=== PATIENT | male | born 1960 | race Caucasian/White ===

== ENCOUNTER 2016-10-16 19:49 | Emergency (ER) | payer BC ==
[~2016-10-16] VITALS: Ht 188 cm; Wt 97.0 kg
[2016-10-16] MEDS ORDERED: ADENOSINE IV SOLN 3 MG/ML 2 ML VIAL ONE ×2 (19:59→20:03)
[2016-10-16 20:10] VITALS: BP 151/88; PULSE 190; RESP 20; TEMP 97.9; O2SAT 100
--- NOTE | 2016-10-16 20:13 | PD ---
HPI Chief Complaint: Chest Pain Time Seen by Provider: 20:06 Travel History International Travel<30 days: No Contact w/Intl Traveler<30days: No Traveled to known affect area: No History of Present Illness HPI Patient is a 56-year-old male presents emergency department for evaluation of chest pain the center of his chest and feeling like he is going to . Patient states he has had some palpitations in the past but has never been evaluated by physician for her fast heart rate. Patient states she's also been having some epigastric pain as well as some gas. Some mild shortness of breath and some sweating episodes. 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 He describes the pain is heavy. Has not tried anything prior to arrival. [facility] Past Medical History Narrative Medical Hyperlipidemia, gastroesophageal reflux, hypothyroidism Past Surgical History Narrative Surgical Denies Family History Narrative Family History Noncontributory Social History Tobacco Use: No Substance Use: Yes (marijuana) Allergies-Medications (Allergen,Severity, Reaction): Coded Allergies: No Known Allergies (Unverified , 10/16/16) Reported Meds & Prescriptions Reported Meds & Active Scripts Active Nitroglycerin SL (Nitroglycerin) 0.4 Mg Subl 0.4 Mg SL DIRECTED PRN ONE TABLET UNDER THE TONGUE NEEDED FOR CHEST PAIN, MAY REPEAT EVERY FIVE MINUTES FOR A TOTAL OF 3 DOSES OR CALL 911 IF NO RELIEF Reported Prozac (Fluoxetine HCl) 20 Mg Cap 20 Mg PO DAILY Synthroid (Levothyroxine Sodium) 137 Mcg Tab 137 Mcg PO DAILY Seroquel (Quetiapine Fumarate) 50 Mg Tab 50 Mg PO BID Simvastatin 40 Mg Tab 40 Mg PO HS Review of Systems Except as stated in HPI: all other systems reviewed are Neg Physical Exam Narrative GENERAL: Well-developed well-nourished anxious but in no obvious distress. SKIN: Skin is adequately perfused but diaphoretic. HEAD: Atraumatic. Normocephalic. EYES: Pupils equal and round. No scleral icterus. No injection or drainage. ENT: No nasal bleeding or discharge. Mucous membranes pink and moist. NECK: Trachea midline. No JVD. CARDIOVASCULAR: Very tachycardic with regular rhythm.. No murmur appreciated. No carotid bruits. RESPIRATORY: No accessory muscle use. Clear to auscultation. Breath sounds equal bilaterally. GASTROINTESTINAL: Abdomen soft, non-tender, nondistended. Hepatic and splenic margins not palpable. MUSCULOSKELETAL: No obvious deformities. No clubbing. No cyanosis. No edema. NEUROLOGICAL: Awake and alert. No obvious cranial nerve deficits. Motor grossly within normal limits. Normal speech. PSYCHIATRIC: Appropriate mood and affect; insight and judgment normal. Data Data Last Documented VS Vital Signs Date Time Temp Pulse Resp B/P Pulse Ox O2 Delivery O2 Flow Rate FiO2 10/16/16 21:21 97.9 190 20 151/88 98 10/16/16 20:40 Room Air 10/16/16 20:27 2 Orders Adenosine Inj (Adenocard Inj) (10/16/16 19:59) Adenosine Inj (Adenocard Inj) (10/16/16 20:03) Adenosine Inj (Adenocard Inj) (10/16/16 20:15) Electrocardiogram (10/16/16 20:06) Ckmb (Isoenzyme) Profile (10/16/16 20:06) Complete Blood Count With Diff (10/16/16 20:06) Comprehensive Metabolic Panel (10/16/16 20:06) Magnesium (Mg) (10/16/16 20:06) Prothrombin Time / Inr (Pt) (10/16/16 20:06) Act Partial Throm Time (Ptt) (10/16/16 20:06) Troponin I (10/16/16 20:06) Chest, Single Ap (10/16/16 20:06) Ecg Monitoring (10/16/16 20:06) Bilateral Bp Monitoring (10/16/16 20:06) Iv Access Insert/Monitor (10/16/16 20:06) Oximetry (10/16/16 20:06) Oxygen Administration (10/16/16 20:06) Aspirin Chew (Aspirin Chew) (10/16/16 20:15) Sodium Chloride 0.9% Flush (Ns Flush) (10/16/16 20:15) Thyroid Stimulating Hormone (10/16/16 20:08) Free T3 (10/16/16 20:08) Free Thyroxine (T4) (10/16/16 20:08) Electrocardiogram (10/16/16 ) Troponin I (10/16/16 21:48) Labs Laboratory Tests Test 10/16/16 10/16/16 10/16/16 20:10 20:16 22:04 White Blood Count 9.1 TH/MM3 Red Blood Count 5.35 MIL/MM3 Hemoglobin 15.7 GM/DL Hematocrit 46.6 % Mean Corpuscular Volume 87.1 FL Mean Corpuscular Hemoglobin 29.4 PG Mean Corpuscular Hemoglobin 33.7 % Concent Red Cell Distribution Width 12.7 % Platelet Count 301 TH/MM3 Mean Platelet Volume 8.0 FL Neutrophils (%) (Auto) 50.8 % Lymphocytes (%) (Auto) 36.5 % Monocytes (%) (Auto) 10.8 % Eosinophils (%) (Auto) 0.9 % Basophils (%) (Auto) 1.0 % Neutrophils # (Auto) 4.6 TH/MM3 Lymphocytes # (Auto) 3.3 TH/MM3 Monocytes # (Auto) 1.0 TH/MM3 Eosinophils # (Auto) 0.1 TH/MM3 Basophils # (Auto) 0.1 TH/MM3 CBC Comment DIFF FINAL Differential Comment Prothrombin Time 10.7 SEC Prothromb Time International 1.0 RATIO Ratio Activated Partial 37.8 SEC Thromboplast Time Sodium Level 140 MEQ/L Potassium Level 3.5 MEQ/L Chloride Level 102 MEQ/L Carbon Dioxide Level 22.2 MEQ/L Anion Gap 16 MEQ/L Blood Urea Nitrogen 21 MG/DL Creatinine 1.40 MG/DL Estimat Glomerular Filtration 52 ML/MIN Rate Random Glucose 124 MG/DL Calcium Level 9.4 MG/DL Magnesium Level 2.2 MG/DL Total Bilirubin 0.4 MG/DL Aspartate Amino Transf 23 U/L (AST/SGOT) Alanine Aminotransferase 32 U/L (ALT/SGPT) Alkaline Phosphatase 94 U/L Total Creatine Kinase 83 U/L Troponin I LESS THAN 0.02 0.19 NG/ML NG/ML Total Protein 7.3 GM/DL Albumin 3.8 GM/DL Free Thyroxine 1.03 NG/DL Free Triiodothyronine (T3) 2.36 PG/ML pg/dL Thyroid Stimulating Hormone 1.990 uIU/ML 3rd Gen [facility] Medical Decision Making Medical Screen Exam Complete: Yes Emergency Medical Condition: Yes Interpretation(s) EKG shows SVT at a rate of 187. Fairly regular. After adenosine 6 mg IV push patient now is sinus tachycardia at a rate of 117. T-wave flattening in [address] elevations other than RR interval intervals otherwise within normal limits. This an abnormal EKG. Differential Diagnosis SVT, ACS, AMI, non-STEMI, hyperthyroidism. Narrative Course Patient was roomed in the emergency department, he is diaphoretic on arrival but otherwise feels well. EKG and cardiac monitoring showed SVT. He was given a dose of 6 mg of adenosine by rapid IV bolus. Ultimately this yielded some PVCs while the patient slowed his heart rate down to the low 100s. Repeat EKG was obtained and findings as above. Initial troponin negative, TSH normal, creatinine minimally elevated 1.4. He was given a liter normal saline and an aspirin as well. Discussed with Dr. Ritter who is on-call for cardiology the patient. We specifically discussed with the patient stay in [place] removed to the [facility]. Currently he is stable. Dr. Ritter recommends a repeat troponin in the emergency department and if negative the patient can stay in [place] for consideration of a nuclear stress test before proceeding to catheterization. Awaiting for the second troponin to result the patient became anxious and stated he wanted to leave. He states he was feeling better. A second troponin resulted in is 0.19. Given the fairly classic story he gives for ACS my plan was to admit him start him on heparin drip rediscussed with Dr. Ritter and transfer him to the [facility] for probable cardiac catheterization. The results of the second troponin were discussed with the patient and I was very deliberate that my clinical impression is that he was having a heart attack in his heart muscle was dying. I discussed that he needs to have a cardiac catheterization to assure that there was adequate blood flow to his heart. The patient states he felt better and wanted to go home because he is here on vacation. I informed the patient that I thought this was a very poor decision and explained why: If he does have significant blockage sick to be taken care of with a a fairly simple cardiac catheterization procedure. I discussed that if the blockages go on checked his heart muscle continued to and this could result in sudden cardiac arrhythmia or he could end up permanently disabled and even become a permanent vegetable if he does have a cardiac arrest and has return of spontaneous circulation. The patient verbalized understanding of all of these possible outcomes and still would like to leave. His significant other is in the room with him and would like a second 2 discussed with him behind closed doors. I left the room close the door to allow them to converse when I returned the patient was still calm and cooperative and still stated that he wanted to leave. He stated that he would come back if he had any further episodes and I informed him that the next episode may not be chest pain but may be sudden cardiac and there may be no warning before it. He verbalized understanding all of this and accepted the risks and still wishes to be discharged. There is no indication to hold this patient against his wishes. He is calm and collected he verbalized understanding and accepted risks. He signed a formal AMA paper and was discharged to self-care. Diagnosis Primary Impression: NSTEMI (non-ST elevated myocardial infarction) Referrals: Herbert Robledo MD Additional Instructions: Please return to the emergency Department at your earliest convenience to be admitted for catheterization. If you have any chest pain shortness of breath please call 911. Take a full dose aspirin 325 mg daily. Med/Other Pt SpecificInfo: Prescription(s) given Scripts Nitroglycerin SL 0.4 Mg Subl0.4 Mg SL DIRECTED PRN (CHEST PAIN) #100 TAB.SL Ref 0 ONE TABLET UNDER THE TONGUE NEEDED FOR CHEST PAIN, MAY REPEAT EVERY FIVE MINUTES FOR A TOTAL OF 3 DOSES OR CALL 911 IF NO RELIEF Prov:John Rodriguez MD 10/16/16 Disposition: 07 AGAINST MEDICAL ADVICE Condition: Stable John Rodriguez MD Oct 16, 2016 20:13
[2016-10-16] MEDS ORDERED: ASPIRIN 81 MG CHEW TAB PO ONE (20:15)
[2016-10-16] MEDS ORDERED: ADENOSINE IV SOLN 3 MG/ML 2 ML VIAL IV PUSH ONE (20:15)
[2016-10-16] MEDS ORDERED: SODIUM CHLORIDE 0.9% FLUSH 10 ML FLUSH IVF PRN (20:15)
[2016-10-16] MEDS ORDERED: SERO50TA PO (20:26)
[2016-10-16] MEDS ORDERED: SIMV40TA PO (20:26)
[2016-10-16] MEDS ORDERED: LEVO-86 PO (20:26)
[2016-10-16] MEDS ORDERED: PROZ20CA11 PO (20:26)
[2016-10-16 20:40] VITALS: BP_SYST 120; BP_SYST 136; BP_DIAS 88; BP_DIAS 97; PULSE 106; RESP 18; O2SAT 100
[2016-10-16 20:47] LABS: APTT (PATIENT) 37.8 SEC (24.3-30.1); CHLORIDE 102 MEQ/L (98-107); POTASSIUM 3.5 MEQ/L (3.5-5.1); PROTHROMBIN TIME - PATIENT 10.7 SEC (9.8-11.6); SODIUM (NA) 140 MEQ/L (136-145)
[2016-10-16 20:49] LABS: AUTOMATED NEUTROPHIL # 4.6 TH/MM3 (1.8-7.7); BASOPHIL # 0.1 TH/MM3 (0-0.2); EOSINOPHIL # 0.1 TH/MM3 (0-0.4); EOSINOPHIL % 0.9 % (0.0-4.0); HEMATOCRIT 46.6 % (39.0-51.0); LYMPH % 36.5 % (9.0-44.0); LYMPHOCYTE # 3.3 TH/MM3 (1.0-4.8); MEAN CELL VOLUME 87.1 FL (80.0-100.0); MEAN CORPUSCULAR HEMOGLOBIN 29.4 PG (27.0-34.0); MEAN CORPUSCULAR HGB CONC 33.7 % (32.0-36.0); MONO % 10.8 % (0.0-8.0); NEUT % 50.8 % (16.0-70.0); PLATELET COUNT 301 TH/MM3 (150-450); RED BLOOD COUNT 5.35 MIL/MM3 (4.50-5.90); RED CELL DISTRIBUTION WIDTH 12.7 % (11.6-17.2); WHITE BLOOD COUNT 9.1 TH/MM3 (4.0-11.0)
[2016-10-16 20:50] LABS: ANION GAP 16 MEQ/L (5-15); BICARBONATE 22.2 MEQ/L (21.0-32.0); BLOOD UREA NITROGEN 21 MG/DL (7-18); MAGNESIUM 2.2 MG/DL (1.5-2.5)
[2016-10-16 20:53] LABS: ALT (GPT) 32 U/L (12-78); AST (GOT) 23 U/L (15-37); GLOMERULAR FILTRATION RATE 52 ML/MIN (>89); HEMO FLAGS DIFF FINAL
[2016-10-16 20:55] LABS: TOTAL BILIRUBIN ADULT 0.4 MG/DL (0.2-1.0)
--- NOTE | 2016-10-16 20:55 | RADHPO ---
EXAM DATE/TIME: 10/16/2016 20:19 [facility] COMPARISON: No previous studies available for comparison. INDICATIONS : Chest pain. MEDICAL HISTORY : None. SURGICAL HISTORY : None. ENCOUNTER: Initial ACUITY: 1 day PAIN SCORE: 7/10 LOCATION: Bilateral chest FINDINGS: A single view of the chest demonstrates the lungs to be symmetrically aerated without evidence of mas s, infiltrate or effusion. The cardiomediastinal contours are unremarkable. Osseous structures are intact. CONCLUSION: No acute disease. Tom Guillen MD on October 16, 2016 at 20:54 Board Certified Radiologist. This report was verified electronically.
[2016-10-16 20:56] LABS: ALKALINE PHOSPHATASE 94 U/L (45-117)
[2016-10-16 21:02] LABS: CREATINE KINASE 83 U/L (39-308)
[2016-10-16 21:21] VITALS: BP 151/88; PULSE 190; RESP 20; TEMP 97.9; O2SAT 98
[2016-10-16 21:54] LABS: FREE T3 2.36 PG/ML (2.18-3.98); FREE T4 1.03 NG/DL (0.76-1.46)
[2016-10-16] MEDS ORDERED: NITR1SUB3 SL (23:20)
--- NOTE | 2016-10-17 13:58 | EKG ---
Date Performed: 10/16/2016 Time Performed: 19:52:14 PTAGE: 56 years EKG: Supraventricular tachycardia with rate [address]-T wave change Clinica l correlation and follow-up tracing recommended. Abnormal ECG NO PREVIOUS TRACING DOCTOR: Polo Greenberg Interpretating Date/Time 10/17/2016 13:56:19
--- NOTE | 2016-10-17 13:58 | EKG ---
Date Performed: 10/16/2016 Time Performed: 20:00:58 PTAGE: 56 years EKG: Sinus tachycardia Lateral T wave changes are nonspecific Compared to previous tracing, the rapid supraventricular tachycardia has been replaced with a sinus tachycardia. ST-T changes have imp roved. Borderline ECG PREVIOUS TRACING : 10/16/2016 19.52 DOCTOR: Polo Greenberg Interpretating Date/Time 10/17/2016 13:57:04
== END 2016-10-16 23:38 | disposition left against medical advice (07) ==
LOC: PHED 19:49
DX: I21.4 Non-ST elevation (NSTEMI) myocardial infarction (principal); R94.31 Abnormal electrocardiogram [ECG] [EKG]; E78.5 Hyperlipidemia, unspecified; E03.9 Hypothyroidism, unspecified; Z87.19 Personal history of other diseases of the digestive system; Z53.29 Procedure and treatment not carried out because of patient's decision for other reasons
CPT/HCPCS: 71010; 80053; 82550; 83735; 84439; 84443; 84481; 84484; 85025; 85610; 85730; 93005; 96374; 99285; J0153

== ENCOUNTER 2016-10-17 10:28 | Inpatient (IN) | payer BC ==
[~2016-10-17] VITALS: Ht 188 cm; Wt 94.0 kg
[2016-10-17] VITALS (12 sets, daily range): BP systolic 135–154; BP diastolic 87–106; PULSE 62–86; RESP 16–20; TEMP 98.1–98.5; O2SAT 95–99
[~2016-10-17 10:28] MED LIST: LEVO-86 PO; NITR1SUB3 SL; PROZ20CA11 PO; SERO50TA PO; SIMV40TA PO
[2016-10-17] MEDS ORDERED: SODIUM CHLORIDE 0.9% FLUSH 10 ML FLUSH IVF PRN (10:45)
[2016-10-17] MEDS ORDERED: HEPARIN SODIUM - IV 10,000 UNITS/10 ML VIAL IV ONE (10:45)
[2016-10-17] MEDS ORDERED: HEPARIN-D5W INJ 250 ML IV SCH (10:45)
--- NOTE | 2016-10-17 11:42 | PD ---
HPI Chief Complaint: Cardiac Complaint Time Seen by Provider: 10:42 Travel History International Travel<30 days: No Contact w/Intl Traveler<30days: No Traveled to known affect area: No History of Present Illness HPI 56-year-old male with history of HLD here with complaint of chest pain. Patient seen in our emergency department yesterday with complaint of chest pain that he described as "indigestion". This was substernal indigestion type pain with pressure in burping. Patient was seen in our emergency department and had SVT with heart rate in the 180s but did have significant ST changes with depression. Initial troponin was negative but a repeat troponin was elevated and was recommended that patient be placed on heparin drip and admitted for cardiac catheterization. Patient states that he had a panic attack, is a very anxious person at baseline, and was worried about his own mortality and ended up signing out AGAINST MEDICAL ADVICE. In the interim patient has been primarily symptom-free without the associated racing heart feeling that he had yesterday. He continues to have some pressure and burping sensation but is symptom-free at the moment. He has had a stress test approximately 5 years ago that was reportedly normal. PFSH Past Medical History Cardiovascular Problems: Yes High Cholesterol: Yes Diminished Hearing: No GERD: Yes Insomnia: Yes Thyroid Disease: Yes (hypo) Social History Alcohol Use: No Tobacco Use: No Substance Use: Yes (marijuana) Allergies-Medications (Allergen,Severity, Reaction): Coded Allergies: No Known Allergies (Unverified , 10/16/16) Reported Meds & Prescriptions Reported Meds & Active Scripts Active Nitroglycerin SL (Nitroglycerin) 0.4 Mg Subl 0.4 Mg SL DIRECTED PRN ONE TABLET UNDER THE TONGUE NEEDED FOR CHEST PAIN, MAY REPEAT EVERY FIVE MINUTES FOR A TOTAL OF 3 DOSES OR CALL 911 IF NO RELIEF Reported Prozac (Fluoxetine HCl) 20 Mg Cap 20 Mg PO DAILY Synthroid (Levothyroxine Sodium) 137 Mcg Tab 137 Mcg PO DAILY Seroquel (Quetiapine Fumarate) 50 Mg Tab 50 Mg PO BID Simvastatin 40 Mg Tab 40 Mg PO HS Review of Systems Except as stated in HPI: all other systems reviewed are Neg Physical Exam Narrative GENERAL: Well-appearing male anxious but in no acute distress SKIN: Focused skin assessment warm/dry. HEAD: Normocephalic. EYES: No scleral icterus. No injection or drainage. ENT: Mucous membranes pink and moist. NECK: Supple CARDIOVASCULAR: Regular rate and rhythm. No murmur appreciated. RESPIRATORY: No accessory muscle use. Clear to auscultation. Breath sounds equal bilaterally. GASTROINTESTINAL: Abdomen soft, non-tender, nondistended. MUSCULOSKELETAL: No obvious deformities. No edema. NEUROLOGICAL: Awake and alert. Normal speech. PSYCHIATRIC: Appropriate mood and affect; insight and judgment normal. Data Data Last Documented VS Vital Signs Date Time Temp Pulse Resp B/P Pulse Ox O2 Delivery O2 Flow Rate FiO2 10/17/16 10:29 98.1 86 18 149/106 99 Orders Electrocardiogram (10/17/16 ) Prothrombin Time / Inr (Pt) (10/17/16 10:43) Act Partial Throm Time (Ptt) (10/17/16 10:43) Troponin I (10/17/16 10:43) Ecg Monitoring (10/17/16 10:43) Iv Access Insert/Monitor (10/17/16 10:43) Oximetry (10/17/16 10:43) Sodium Chloride 0.9% Flush (Ns Flush) (10/17/16 10:45) Heparin Infusion CLEMENTE.Q1H (10/17/16 10:43) Heparin Inj (Heparin Inj) (10/17/16 10:45) Heparin Inj (Heparin Inj) (10/17/16 16:45) Heparin Inj (Heparin Inj) (10/17/16 16:45) Heparin-D5w Inj (Heparin-D5w Inj) (10/17/16 10:45) Cbc No Diff, Includes Plts (10/20/16 06:00) Act Partial Throm Time (Ptt) (10/17/16 17:43) Occult Blood (Hemoccult) Stool (10/17/16 10:43) Consult Cardiology (10/17/16 ) MDM Medical Decision Making Medical Screen Exam Complete: Yes Emergency Medical Condition: Yes Medical Record Reviewed: Yes Differential Diagnosis 56-year-old male with history of HLD here with SVT and elevated troponin in our ER yesterday with chest pain, back after he signed out AMA. Symptoms are concerning for SVT with associated rate-related ischemic changes versus non-ST elevation IN. His story is quite concerning for classic anginal symptoms. Narrative Course Patient placed on monitor, IV established and blood obtained. A twelve-lead EKG shows no ST changes, sinus rhythm at this time. Patient does have T-wave inversions in lateral leads 1 and aVL. Patient was placed on heparin bolus, drip and cardiology consulted and patient will be admitted for cardiac catheterization. Critical Care Narrative Aggregate critical care time was 35 minutes. Time to perform other separately billable procedures was not included in the critical care time. My time did not include minutes spent treating any other patients simultaneously or on activities that did not directly contribute to the patient's treatment. The services I provided to this patient were to treat and/or prevent clinically significant deterioration that could result in: Cardio pulmonary decompensation, , disability provided critical care services requiring my management, as noted below: Chart data review, documentation time, medication orders and management, vital sign assessments/reviewing monitor data, ordering and reviewing lab tests, ordering and interpreting/reviewing x-rays and diagnostic studies, care of the patient and discussion of the patient with the admitting physicians. Diagnosis Primary Impression: NSTEMI (non-ST elevated myocardial infarction) Additional Impression: SVT (supraventricular tachycardia) Admitting Information Admitting Physician Requests: it Jolly Vinson MD Oct 17, 2016 11:42
[2016-10-17 11:58] LABS: APTT (PATIENT) 37.4 SEC (24.3-30.1); PROTHROMBIN TIME - PATIENT 11.1 SEC (9.8-11.6)
[2016-10-17] MEDS: METOPROLOL TARTRATE 50 MG TAB PO SCH ×2 (12:22→20:22)
[2016-10-17] MEDS ORDERED: SODIUM CHLOR 0.9% 1000 ML INJ 1,000 ML IV SCH (12:23)
[2016-10-17] MEDS ORDERED: DIAZEPAM 10 MG TAB PO SCH (12:30)
[2016-10-17] MEDS ORDERED: diphenhydrAMINE HCL 50 MG CAP PO SCH (12:30)
[2016-10-17] MEDS ORDERED: ASPIRIN 325 MG TAB PO SCH ×2 (12:30→13:15)
--- NOTE | 2016-10-17 12:33 | HHI.HP ---
[facility] Service Family Medicine Primary Care Physician Non-Staff Admission Diagnosis NSTEMI Diagnoses: International Travel<30 Days: No Contact w/Intl Traveler<30days: No Known Affected Area: No History of Present Illness Patient is a 56-year-old male with past medical history of hypothyroidism, s/p radioactive iodine ablation for hyperthyroidism, hyperlipidemia, presenting due to chest pain. This pain started 2 days ago. He described pain as a pressure, "like an elephant sitting on my chest", with radiation to his shoulders, located in the center of his chest. He initially though the pain was due to indigestion and he took Tums, which slightly relieved this pain. He continued to have chest pain and this caused him to go to the ED yesterday. He was seen in the ED in [place] and diagnosed with an NSTEMI and was advised that he needed to have a cardiac catheterization. He was given Adenosine 6mg IV x1 which relieved his symptoms. He left the ED AMA, as he felt better, and he expressed understanding regarding the risks of doing so. When he went home his and daughter convinced him to return to the hospital to be admitted. He reports that he last experienced chest pain last night around 6:45pm, which he describes as a heaviness. The pain has been intermittent. He was diagnosed with sinusitis on September 19 and was prescribed a Z-Zion, which he completed. About 4 days ago he had diarrhea which he attributed to a " stomach virus". Diarrhea has currently resolved. (Luis Macdonald MD R2) Review of Systems Constitutional: COMPLAINS OF: Diaphoretic episodes, DENIES: Fever, Chills Eyes: DENIES: Diplopia Ears, nose, mouth, throat: DENIES: Hearing loss Respiratory: COMPLAINS OF: Shortness of breath, DENIES: Cough Cardiovascular: COMPLAINS OF: Chest pain, Palpitations, DENIES: Lower Extremity Edema Gastrointestinal: DENIES: Abdominal pain Genitourinary: COMPLAINS OF: Urinary frequency, DENIES: Urgency, Hematuria Musculoskeletal: COMPLAINS OF: Joint pain (shoulders) Integumentary: DENIES: Rash Neurologic: COMPLAINS OF: Headache Psychiatric: DENIES: Confusion (Luis Macdonald MD R2) Past Family Social History Past Medical History No Cardiac History High cholesterol Hyperthyroidism, s/p radioactive iodine ablation, now hypothyroid Anxiety Past Surgical History Tonsilectomy Radioactive iodine ablation of thyroid Reported Medications Reported Meds & Active Scripts Active Nitroglycerin SL (Nitroglycerin) 0.4 Mg Subl 0.4 Mg SL DIRECTED PRN ONE TABLET UNDER THE TONGUE NEEDED FOR CHEST PAIN, MAY REPEAT EVERY FIVE MINUTES FOR A TOTAL OF 3 DOSES OR CALL 911 IF NO RELIEF Reported Prozac (Fluoxetine HCl) 20 Mg Cap 20 Mg PO DAILY Lunch Synthroid (Levothyroxine Sodium) 137 Mcg Tab 137 Mcg PO DAILY Seroquel (Quetiapine Fumarate) 50 Mg Tab 50 Mg PO BID Sleep Simvastatin 40 Mg Tab 40 Mg PO HS (Luis Macdonald MD R2) Allergies: Coded Allergies: Penicillin (Verified Allergy, Intermediate, Hives, 10/17/16) Active Ordered Medications Inpatient Medications Acetaminophen (Tylenol) 650 mg Q6H PRN PO HEADACHE OR TEMP > 101 F; Start 10/17 at 13:15 Alprazolam (Xanax) 0.25 mg Q8H PRN PO ANXIETY; Start 10/17/16 at 13:15 Aspirin (Aspirin) 325 mg NOW PO ; Start 10/17/16 at 13:15; Stop 10/17/16 at 13: 24; Status DC Diazepam (Valium) 10 mg SHIATSU THERAPIST PO ; Start 10/17/16 at 12:30; Stop 10/21/16 at 12:29 Diphenhydramine HCl (Benadryl) 50 mg SHIATSU THERAPIST PO ; Start 10/17/16 at 12:30; Stop 10/21/16 at 12:29 Docusate Sodium (Colace) 100 mg BID PRN PO CONSTIPATION; Start 10/17/16 at 13: 15 Enalaprilat (Vasotec Inj) 1.25 mg Q6H PRN IV SBP>160, DBP>90; Start 10/17/16 at 13:30 Flumazenil (Romazicon Inj) 0.2 mg Q1M PRN IV PUSH SEE LABEL COMMENTS; Start at 14:30 Fluoxetine HCl (PROzac) 20 mg DAILY PO ; Start 10/18/16 at 09:00 Heparin Sodium (Porcine) (Heparin Inj) 5,000 units UNSCH PRN IV APTT LESS THAN 25; Start 10/17/16 at 16:45 Heparin Sodium (Porcine) 2500 units 2,500 units UNSCH PRN IV APTT 25 TO 39; Start 10/17/16 at 16:45 Heparin Sodium/ Dextrose (Heparin-D5W Inj) 250 ml @ 0 mls/hr TITRATE IV Last administered on 10/17/16 11:00; Start 10/17/16 at 10:45 Isosorbide Mononitrate (Imdur) 30 mg DAILY@07 PO ; Start 10/18/16 at 07:00 Levothyroxine Sodium (Synthroid) 25 mcg DAILY@06 PO ; Start 10/18/16 at 06:00 Lorazepam (Ativan Inj) 2 mg Q15M PRN IV PUSH CIWA > 20; Start 10/17/16 at 14:30 Lorazepam (Ativan) 2 mg Q2H PRN PO CIWA 11-14; Start 10/17/16 at 14:30 Metoprolol Tartrate 50 mg 50 mg Q12HR PO Last administered on 10/17/16 20:22; Start 10/17/16 at 12:00 Morphine Sulfate (Morphine Inj) 2 mg Q30M PRN IV CHEST PAIN; Start 10/17/16 at 13:15 Naloxone HCl (Narcan Inj) 0.4 mg UNSCH PRN IV SEE LABEL COMMENTS; Start at 14:30 Nitroglycerin (Nitroglycerin 2% Oint) 2 inch Q2HR PRN TOP CHEST PAIN; Start at 13:15 Nitroglycerin (Nitrostat Sl) 0.4 mg Q5M PRN SL CHEST PAIN; Start 10/17/16 at 13 :15 Ondansetron HCl (Zofran Inj) 4 mg Q6H PRN IV NAUSEA OR VOMITING; Start at 13:15 Pravastatin Sodium (Pravachol) 80 mg HS PO Last administered on 10/17/16 20:22 ; Start 10/17/16 at 21:00 Quetiapine Fumarate (SEROquel) 50 mg BID PO Last administered on 10/17/16 20: 22; Start 10/17/16 at 21:00 Sodium Chloride (NS 1000 ml Inj) 1,000 ml @ 100 mls/hr Q10H IV ; Start at 12:23; Stop 10/22/16 at 12:22 Sodium Chloride (NS Flush) 2 ml UNSCH PRN IV FLUSH FLUSH AFTER USING IV ACCESS ; Start 10/17/16 at 13:15 Family History Mother: David Hoffman, tobacco abuse, CHF, defibrillator in her 80s Father: Brain Hemorrhage at 63, Social History 3-4 beers, never gine through withdrawl, since he was 10yo smokes MJ for 40 years smokes when he was a teenage Used [employer] in [place], [place]. Lives at home with (Luis Macdonald MD R2) Physical Exam Vital Signs Vital Signs Date Time Temp Pulse Resp B/P Pulse Ox O2 Delivery O2 Flow Rate FiO2 10/17/16 12:23 82 18 154/87 97 Room Air 10/17/16 10:29 98.1 86 18 149/106 99 Physical Exam GENERAL: This is a well-nourished, well-developed patient, in no apparent distress, sunburned face and neck SKIN: No rashes, ecchymoses or lesions. Cool and dry. HEAD: Atraumatic. Normocephalic. No temporal or scalp tenderness. EYES: Pupils equal round and reactive. Extraocular motions intact. No scleral icterus. No injection or drainage. ENT: Nose without bleeding, purulent drainage or septal hematoma. Throat without erythema, tonsillar hypertrophy or exudate. Uvula midline. Airway patent. NECK: Trachea midline. No JVD or lymphadenopathy. Supple, nontender, no meningeal signs. CARDIOVASCULAR: Regular rate and rhythm without murmurs, gallops, or rubs. RESPIRATORY: Clear to auscultation. Breath sounds equal bilaterally. No wheezes , rales, or rhonchi. GASTROINTESTINAL: Abdomen soft, non-tender, nondistended. No hepato-splenomegaly , or palpable masses. No guarding. MUSCULOSKELETAL: Extremities without clubbing, cyanosis, or edema. No joint tenderness, effusion, or edema noted. No calf tenderness. Negative Homans sign bilaterally. NEUROLOGICAL: Awake and alert. Cranial nerves II through XII intact. Motor and sensory grossly within normal limits. Five out of 5 muscle strength in all muscle groups. Normal speech. Laboratory Laboratory Tests Test 10/17/16 11:30 Prothrombin Time 11.1 Prothromb Time International 1.0 Ratio Activated Partial 37.4 Thromboplast Time Troponin I 0.18 (Luis Macdonald MD R2) Assessment and Plan Assessment and Plan Patient is a 56-year-old male with past medical history of hypothyroidism, s/p radioactive iodine ablation for hyperthyroidism, hyperlipidemia, presenting due to chest pain, found to have an NSTEMI, Scheduled to have a cardiac catheterization tomorrow. Code Status Full Discussed Condition With dw Dr. Peña, Dr. Parker (Luis Macdonald MD R2) Attending Attestation THIS CASE WAS DISCUSSED WITH THE RESIDENT PHYSICIANS. I HAVE REVIEWED THE RECORD AND AGREE WITH THE ABOVE NOTE AND PLAN OF CARE WAS DISCUSSED. I HAVE AUTHORIZED THE ORDER FOR ADMISSION TO AN IN-PATIENT STATUS. (Keron Peña MD) Problem List: (1) NSTEMI (non-ST elevated myocardial infarction) Status: Acute Plan: Patient presented due to chest pain. History consistent with unstable angina. Initial EKG on 10/[address] wave depression, SVT with rate of 187. TSH within normal limits. ASA 325 mg 1 Continue home statin, converted to pravastatin 80 mg po hs Nitropaste and sublingual nitroglycerin PRN chest pain Morphine PRN chest pain Vasotec PRN We'll trend troponin and CK Initial troponin 0.18-->0.13 Cardiology Consulted, appreciate recommendations and intervention Cardiac catheterization scheduled for tomorrow Imdur and metoprolol were added (2) Alcohol abuse Status: Acute Plan: Patient with history of alcohol abuse. Reports drinking about 34 beers daily, more than this at times. He denies ever going through withdrawal or having seizures. CIWA protocol (3) FEN/PPX Status: Acute Plan: Fluids: Will start maintenance fluid at Midnight once pt is NPO Electrolytes: COntinue to monitor and replete as needed Nutrition: Heart healthy, NPO at midnight in anticipation of cardiac catheterization DVT PPX: Heparin drip Chronic medical problems: Hyperlipemia: Continue home Statin Anxiety: Continue home fluoxetine, Seroquel Hypothyroidism: Continue home Synthroid (Luis Macdonald MD R2) Physician Certification 2 Midnight Certification Type: Admission for Inpatient Services Order for Inpatient Services The services are ordered in accordance with Medicare regulations or non- Medicare payer requirements, as applicable. In the case of services not specified as inpatient-only, they are appropriately provided as inpatient services in accordance with the 2-midnight benchmark. Estimated LOS (days): 2 days is the estimated time the patient will need to remain in the hospital, assuming treatment plan goals are met and no additional complications. Post-Hospital Plan: Home (Luis Macdonald MD R2) Luis Macdonald MD R2 Oct 17, 2016 12:33 Keron Peña MD Oct 17, 2016 22:11
--- NOTE | 2016-10-17 12:45 | MB ---
cc: PAULY LEYVA MD DATE OF CONSULTATION: 10/17/2016 REASON FOR CONSULTATION: SVT and elevated troponin. HISTORY OF PRESENT ILLNESS The patient is a very pleasant 56-year-old gentleman with a history of prior hyperthyroidism, now hypothyroid, who presents with chest discomfort. He was found to be in a fast SVT and given adenosine. He converted to sinus rhythm and went home against medical advice but then represented to [facility] for full workup. He does admit to intermittent chest discomfort, not particularly exertional with the sensation of needing to belch. He feels like he has had SVT about half dozen times over the years, all of which have been self-limiting until this most recent episode. Currently he is chest pain free, denying any shortness of breath, dizziness, syndope. PAST MEDICAL HISTORY Anxiety, hypothyroidism, hypercholesterolemia. HOME MEDICATIONS: 1. Prozac. 2. Synthroid. 3. Seroquel 4. Simvastatin PHYSICAL EXAMINATION VITAL SIGNS: Afebrile, pulse 86, respiratory rate 18, BP 149/106 sating 99 on 2 liters. General: Pleasant well-appearing gentleman in no distress. Neck: No JVD. Lungs: Clear to auscultation bilaterally. Cardiovascular: Regular rhythm. No murmurs appreciated. Abdomen: Benign. Extremities: No edema. LABORATORY DATA White count 9.1, hematocrit 46.6, platelets 301. Sodium 140, potassium 3.5, chloride 102, bicarb 22.2, BUN 21, creatinine 1.4, cardiac enzymes, first set was negative, second troponin was 0.19. EKG initially showed SVT at [address] depression, repeat EKG showed sinus rhythm with resolution of those ST changes. IMPRESSION Non STEMI. The patient had non STEMI in the setting of a fast SVT. However, given the noted ST changes, as well as the patient's intermittent symptoms, which seems consistent with unstable angina, I believe a cardiac catheterization is warranted. I will add Imdur and metoprolol for antianginal agents. The cath will be performed by my partner, Dr. Garcia, tomorrow morning. He is on a heparin drip and will be kept n.p.o. past midnight. Thank you again for the opportunity to participate in this patient's care. MD SANCHEZ Perez /11:58 AM /12:35 PM
[2016-10-17] MEDS ORDERED: NITROGLYCERIN 0.4 MG SL 25 TABS/BTL SL PRN (13:15)
[2016-10-17] MEDS ORDERED: ONDANSETRON HCL 4 MG/2 ML VIAL IV PRN (13:15)
[2016-10-17] MEDS ORDERED: NITROGLYCERIN 2% OINT 1 GM PACKET TOP PRN (13:15)
[2016-10-17] MEDS ORDERED: ALPRAZolam 0.25 MG TAB PO PRN (13:15)
[2016-10-17] MEDS ORDERED: SODIUM CHLORIDE 0.9% FLUSH 10 ML FLUSH IV FLUSH PRN (13:15)
[2016-10-17] MEDS ORDERED: ACETAMINOPHEN 325 MG TAB PO PRN (13:15)
[2016-10-17] MEDS ORDERED: DOCUSATE SODIUM 100 MG CAP PO PRN (13:15)
[2016-10-17] MEDS ORDERED: MORPHINE SULFATE 4 MG/ML INJ IV PRN (13:15)
[2016-10-17] MEDS ORDERED: ENALAPRILAT 1.25 MG/ML VIAL IV PRN (13:30)
[2016-10-17 13:37] LABS: AUTOMATED NEUTROPHIL # 5.5 TH/MM3 (1.8-7.7); BASOPHIL % 0.6 % (0.0-2.0); EOSINOPHIL % 0.1 % (0.0-4.0); HEMATOCRIT 44.4 % (39.0-51.0); HEMO FLAGS DIFF FINAL; LYMPH % 17.9 % (9.0-44.0); LYMPHOCYTE # 1.3 TH/MM3 (1.0-4.8); MEAN CORPUSCULAR HGB CONC 34.8 % (32.0-36.0); MONO % 7.5 % (0.0-8.0); NEUT % 73.9 % (16.0-70.0); PLATELET COUNT 228 TH/MM3 (150-450); RED BLOOD COUNT 5.17 MIL/MM3 (4.50-5.90); RED CELL DISTRIBUTION WIDTH 13.1 % (11.6-17.2); WHITE BLOOD COUNT 7.4 TH/MM3 (4.0-11.0)
--- NOTE | 2016-10-17 13:58 | EKG ---
Date Performed: 10/17/2016 Time Performed: 10:49:39 PTAGE: 56 years EKG: Sinus rhythm MODERATE VOLTAGE CRITERIA FOR LVH, CONSIDER NORMAL VARIANT NONSPECIFIC T-WAVE ABNORMALITY Compared t o previous tracing, QRs voltage is slightly higher, ST-T changes are about the same. ABNORMAL ECG PREVIOUS TRACING : 10/16/2016 20.00 DOCTOR: Polo Greenberg Interpretating Date/Time 10/17/2016 13:57:38
[2016-10-17] MEDS ORDERED: LORazepam 2 MG TAB PO PRN (14:30)
[2016-10-17] MEDS ORDERED: LORazepam 1 MG TAB PO PRN (14:30)
[2016-10-17] MEDS ORDERED: LORazepam 2 MG/ML VIAL IV PUSH PRN ×4 (14:30)
[2016-10-17] MEDS ORDERED: FLUMAZENIL 0.5 MG/5 ML VIAL IV PUSH PRN (14:30)
[2016-10-17] MEDS ORDERED: NALOXONE HCL 0.4 MG/ML AMP IV PRN (14:30)
[2016-10-17] MEDS ORDERED: HEPARIN SODIUM - IV 10,000 UNITS/10 ML VIAL IV PRN ×2 (16:45)
[2016-10-17 18:55] LABS: APTT (PATIENT) 43.6 SEC (24.3-30.1)
[2016-10-17] MEDS: QUEtiapine FUMARATE 25 MG TAB PO SCH (20:22)
[2016-10-17] MEDS: SODIUM CHLORIDE 0.9% FLUSH 10 ML FLUSH IV FLUSH SCH (20:22)
--- NOTE | 2016-10-17 20:51 | HHI.HP ---
[facility] Service Family Medicine Primary Care Physician Non-Staff Admission Diagnosis NSTEMI Diagnoses: (1) NSTEMI (non-ST elevated myocardial infarction) (2) SVT (supraventricular tachycardia) International Travel<30 Days: No Contact w/Intl Traveler<30days: No Known Affected Area: No History of Present Illness 56 yo M presenting to the ED for chest pressure/discomfort yesterday. He describes the discomfort as a tightness or pressure/heaviness substernally that is associated with a rapid heart rate. He presented to the ED at [place] yesterday and was found to be in SVT and was converted to spontaneous rhythm with adenosine. It was recommended he stay for further cardiac evaluation however he left AMA. He had some more chest discomfort overnight and re- presented to the ED today for further evaluation. He describes intermittent chest discomfort over the last several years associated with similar symptoms to his SVT that has usually spontaneously converted. He denies tobacco use but does smoke marijuana, does drink 4-6 beers daily. He and his are down from [place] for [address] to drive home to [place] in 6 days. Past Family Social History Past Medical History No Cardiac History CXR High cholesterol Hyperthyroidism Anxiety Past Surgical History Tonsilectomy Radioactive iodine abation Allergies: Coded Allergies: Penicillin (Verified Allergy, Intermediate, Hives, 10/17/16) Family History Mother: David Elizabether, tobacco abuse, CHF, defibrillator in her 80s Father: Brain Hemorrhage at 63, Social History 3-4 beers, never gine through withdraw, since he was 10yo smokes MJ for 40 years smokes when he was a teenage Used [employer] in [place], [place]. Lives at home with Physical Exam Vital Signs Vital Signs Date Time Temp Pulse Resp B/P Pulse Ox O2 Delivery O2 Flow Rate FiO2 10/17/16 18:00 70 10/17/16 17:00 78 10/17/16 16:00 72 10/17/16 15:30 98.1 79 16 146/97 98 10/17/16 15:00 84 10/17/16 14:25 70 16 135/88 99 Room Air 10/17/16 12:23 82 18 154/87 97 Room Air 10/17/16 10:29 98.1 86 18 149/106 99 Physical Exam GENERAL: This is a pleasant, well-nourished, well-developed patient, in no apparent distress. SKIN: No rashes, ecchymoses or lesions. Cool and dry. EYES: Pupils equal round and reactive. NECK: Trachea midline. No JVD or lymphadenopathy. CARDIOVASCULAR: Regular rate and rhythm without murmurs, gallops, or rubs. RESPIRATORY: Clear to auscultation. Breath sounds equal bilaterally. No wheezes , rales, or rhonchi. GASTROINTESTINAL: Abdomen soft, non-tender, nondistended. MUSCULOSKELETAL: Extremities without clubbing, cyanosis, or edema. NEUROLOGICAL: Awake and alert. Normal speech. Laboratory Laboratory Tests Test 10/17/16 10/17/16 10/17/16 11:30 12:00 18:33 Prothrombin Time 11.1 Prothromb Time International 1.0 Ratio Activated Partial 37.4 43.6 Thromboplast Time Troponin I 0.18 0.13 White Blood Count 7.4 Red Blood Count 5.17 Hemoglobin 15.5 Hematocrit 44.4 Mean Corpuscular Volume 86.0 Mean Corpuscular Hemoglobin 30.0 Mean Corpuscular Hemoglobin 34.8 Concent Red Cell Distribution Width 13.1 Platelet Count 228 Mean Platelet Volume 8.3 Neutrophils (%) (Auto) 73.9 Lymphocytes (%) (Auto) 17.9 Monocytes (%) (Auto) 7.5 Eosinophils (%) (Auto) 0.1 Basophils (%) (Auto) 0.6 Neutrophils # (Auto) 5.5 Lymphocytes # (Auto) 1.3 Monocytes # (Auto) 0.6 Eosinophils # (Auto) 0.0 Basophils # (Auto) 0.0 CBC Comment DIFF FINAL Differential Comment Total Creatine Kinase 73 Result Diagram: 10/17/16 1200 Assessment and Plan Assessment and Plan 56 yo M presenting with Atypical chest pain and SVT - plan for further cardiac workup Problem List: (1) NSTEMI (non-ST elevated myocardial infarction) Status: Acute Plan: NSTEMI in the setting of SVT Plan is for cardiac catheterization by cardiology on 10/18 - Heparin gtt - Imdur and Metoprolol - Statin treatment with pravastatin - ASA daily - Monitor on cardiac telemetry - NPO after midnight - Nitroglycerin as needed for chest pain - Morphine as needed for chest pain - Supplemental oxygen as needed - Cycle cardiac troponins Order fasting lipid panel for tomorrow (2) SVT (supraventricular tachycardia) Status: Acute Plan: Currently in normal sinus rhythm - Monitor on cardiac telemetry - Adenosine as needed (3) Hypothyroid Status: Acute Plan: TSH, T3 and T4 normal on 10/16 - Continue home synthroid Physician Certification 2 Midnight Certification Type: Admission for Inpatient Services Order for Inpatient Services The services are ordered in accordance with Medicare regulations or non- Medicare payer requirements, as applicable. In the case of services not specified as inpatient-only, they are appropriately provided as inpatient services in accordance with the 2-midnight benchmark. Estimated LOS (days): 2 2 days is the estimated time the patient will need to remain in the hospital, assuming treatment plan goals are met and no additional complications. Post-Hospital Plan: Home Keron Peña MD Oct 17, 2016 20:51
[2016-10-17] MEDS ORDERED: PRAVASTATIN SOD 80 MG TAB PO SCH (21:00)
[2016-10-18] VITALS (16 sets, daily range): BP systolic 103–122; BP diastolic 69–81; PULSE 62–82; RESP 16–20; TEMP 98–98.7; O2SAT 93–98
[2016-10-18 01:17] LABS: APTT (PATIENT) 40.7 SEC (24.3-30.1)
[2016-10-18 01:19] LABS: HDL CHOLESTEROL 43.2 MG/DL (40.0-60.0)
[2016-10-18 04:02] LABS: AUTOMATED NEUTROPHIL # 3.4 TH/MM3 (1.8-7.7); BASOPHIL % 0.4 % (0.0-2.0); EOSINOPHIL # 0.1 TH/MM3 (0-0.4); EOSINOPHIL % 0.8 % (0.0-4.0); HEMATOCRIT 41.1 % (39.0-51.0); HEMO FLAGS DIFF FINAL; LYMPH % 35.6 % (9.0-44.0); LYMPHOCYTE # 2.4 TH/MM3 (1.0-4.8); MEAN CELL VOLUME 85.7 FL (80.0-100.0); MEAN CORPUSCULAR HEMOGLOBIN 29.9 PG (27.0-34.0); MEAN CORPUSCULAR HGB CONC 34.9 % (32.0-36.0); MONO % 11.3 % (0.0-8.0); NEUT % 51.9 % (16.0-70.0); PLATELET COUNT 199 TH/MM3 (150-450); RED BLOOD COUNT 4.79 MIL/MM3 (4.50-5.90); WHITE BLOOD COUNT 6.6 TH/MM3 (4.0-11.0)
[2016-10-18 04:13] LABS: ANION GAP 7 MEQ/L (5-15); AST (GOT) 16 U/L (15-37); BICARBONATE 29.2 MEQ/L (21.0-32.0); BLOOD UREA NITROGEN 13 MG/DL (7-18); CHLORIDE 105 MEQ/L (98-107); GLOMERULAR FILTRATION RATE 67 ML/MIN (>89); POTASSIUM 4.2 MEQ/L (3.5-5.1); SODIUM (NA) 141 MEQ/L (136-145)
[2016-10-18 04:15] LABS: APTT (PATIENT) 40.8 SEC (24.3-30.1)
[2016-10-18 04:16] LABS: ALKALINE PHOSPHATASE 79 U/L (45-117); ALT (GPT) 24 U/L (12-78); TOTAL BILIRUBIN ADULT 0.7 MG/DL (0.2-1.0)
[2016-10-18] MEDS ORDERED: LEVOTHYROXINE SODIUM 112 MCG TAB PO SCH (06:00)
[2016-10-18] MEDS ORDERED: LEVOTHYROXINE SODIUM 25 MCG TAB PO SCH (06:00)
[2016-10-18] MEDS ORDERED: ISOSORBIDE MONONITRATE 30 MG TAB PO SCH (07:00)
[2016-10-18] MEDS: SODIUM CHLOR 0.9% 1000 ML INJ 1,000 ML IV SCH ×3 (07:09→14:18)
[2016-10-18] MEDS: METOPROLOL TARTRATE 50 MG TAB PO SCH (08:03)
[2016-10-18] MEDS: SODIUM CHLORIDE 0.9% FLUSH 10 ML FLUSH IV FLUSH SCH (08:04)
[2016-10-18] MEDS: QUEtiapine FUMARATE 25 MG TAB PO SCH (08:10)
[2016-10-18] MEDS ORDERED: FLUoxetine HCL 20 MG CAP PO SCH (09:00)
--- NOTE | 2016-10-18 09:29 | MB ---
cc: ANDER MARTÍNEZ M.D. DATE OF CONSULTATION: 10/18/2016 REASON FOR CONSULTATION Cardiac catheterization. HISTORY OF PRESENT ILLNESS The patient is a 56-year-old white male with a history of hyperlipidemia, hyperthyroidism, who presented to the hospital a couple days ago with chest discomfort and rapid palpitations. He was found to be in supraventricular tachycardia which responded to adenosine intravenously. Troponin level was found to be slightly abnormal and he was recommended admission for possible cardiac catheterization but he decided to sign out against medical advice. However, he became more concerned the next day and returned. He described the chest discomfort during the supraventricular tachycardia as a "pressure" and "indigestion". There was associated slight nausea and lightheadedness. In retrospect he states he has had similar chest discomfort over the last few months, although never lasting more than a minute. He denies pleurisy, pedal edema, paroxysmal nocturnal dyspnea, syncope, near-syncope. PAST MEDICAL HISTORY 1. Hyperlipidemia. 2. Hyperthyroidism status post radioactive iodine therapy about 20 years ago. MEDICATION His cardiac medications at home: Simvastatin 40 mg q.h.s. ALLERGIES NO KNOWN DRUG ALLERGIES. FAMILY HISTORY There is no significant family history of early myocardial infarction. The patient's mother did undergo coronary stenting in her 70s. SOCIAL HISTORY The patient denies alcohol or tobacco abuse. REVIEW OF SYSTEMS As in the history of present illness, otherwise negative or noncontributory. He also denies headache, abdominal pain, melena, bright red blood per rectum. PHYSICAL EXAMINATION VITAL SIGNS: Blood pressure 110/76 with a pulse of 75, respirations 18. GENERAL: In general he is a well-developed, well-nourished white male in no acute distress. HEENT: Jugular venous pressure is normal. Carotid pulses are 2+ bilaterally and without bruits. CHEST: Examination of the chest reveals clear lung dickens. CARDIAC: On cardiac examination he has a regular rhythm and rate without S3-S4 or murmur. ABDOMEN: On abdominal examination he has a soft, nontender abdomen. Bowel sounds are present. There is no definite hepatosplenomegaly. EXTREMITIES: Examination of the extremities reveals no clubbing, cyanosis or edema. Peripheral pulses are normal throughout. LABORATORY DATA Laboratory data includes normal CBC, troponin 0.19, BUN 13, creatinine 1.13, total cholesterol 204, LDL 116, HDL 43. EKGs EKG from 10/17/2016 at 11:52 p.m. shows normal sinus rhythm, normal EKG. EKG from 10/16/2016 at 07:52 p.m. shows supraventricular tachycardia, lateral ST abnormality, consider ischemia. IMPRESSION Paroxysmal supraventricular tachycardia, possible non-ST elevation myocardial infarction in this 56-year-old white male with a history of hyperthyroidism, hyperlipidemia. Troponin levels are slightly abnormal. Although, the slightly abnormal troponin levels could be due to the supraventricular tachycardia, the patient also notes intermittent episodes of chest discomfort over the past few months, often at rest. His chest discomfort on presentation was suggestive of angina. He does have ischemic ST-segment changes with the elevated heart rate during the supraventricular tachycardia. At this point I would agree with cardiac catheterization. The nature of this procedure and potential risks including but not limited to , myocardial infarction, stroke, arrhythmia, bleeding, infection, renal failure have been outlined. He agrees to proceed. RECOMMENDATIONS Cardiac catheterization today. MD RUBEN Ramirez/TLL /8:57 AM /9:07 AM MTDAndrea
--- NOTE | 2016-10-18 09:50 | HHI.FPPN ---
Subjective Remarks Patient seen and examined. KATHY overnight. VSSAF. Feels good this morning. He is anxious for the catheterization this morning. Denies chest pain, shortness of breath, nausea. vomiting, or palpitations. (Leslie Ordoñez MD R3) Objective Vitals Vital Signs Date Time Temp Pulse Resp B/P Pulse Ox O2 Delivery O2 Flow Rate FiO2 10/18/16 07:00 98.3 74 16 122/81 96 10/18/16 06:05 75 10/18/16 05:30 75 10/18/16 04:00 98.7 75 18 111/76 96 10/18/16 03:33 62 10/18/16 02:00 73 10/18/16 01:04 63 10/18/16 00:00 74 10/18/16 00:00 98.5 65 18 110/76 98 10/17/16 23:04 67 10/17/16 22:00 62 10/17/16 20:00 98.5 66 20 143/87 95 10/17/16 19:00 76 10/17/16 18:00 70 10/17/16 17:00 78 10/17/16 16:00 72 10/17/16 15:30 98.1 79 16 146/97 98 10/17/16 15:00 84 10/17/16 14:25 70 16 135/88 99 Room Air 10/17/16 12:23 82 18 154/87 97 Room Air 10/17/16 10:29 98.1 86 18 149/106 99 I/O 10/17/16 10/17/16 10/17/16 10/18/16 10/18/16 10/18/16 07:00 15:00 23:00 07:00 15:00 23:00 Intake Total 315 ml 340 ml Balance 315 ml 340 ml Intake Oral 240 ml 240 ml IV Total 75 ml 100 ml # Voids 0 2 # Bowel Movements 0 (Leslie Ordoñez MD R3) Result Diagram: 10/18/1634110/18/16341 Objective Remarks GENERAL: This is a pleasant, well-nourished, well-developed patient, in no apparent distress. SKIN: No rashes, ecchymoses or lesions. Cool and dry. White-skin EYES: Pupils equal round and reactive. EOMI. No conjunctival injections. NECK: Trachea midline. CARDIOVASCULAR: Regular rate and rhythm without murmurs, gallops, or rubs. 2+ dorsalis pedis pulses bilaterally. RESPIRATORY: Clear to auscultation. Breath sounds equal bilaterally. No wheezes , rales, or rhonchi. GASTROINTESTINAL: Abdomen soft, non-tender, nondistended. Active bowel sounds. MUSCULOSKELETAL: Extremities without clubbing, cyanosis, or edema. No calf tenderness. NEUROLOGICAL: Awake and alert. Normal speech. No focal deficits. (Leslie Ordoñez MD R3) A/P Assessment and Plan Patient is a 56-year-old male with past medical history of hypothyroidism, s/p radioactive iodine ablation for hyperthyroidism, hyperlipidemia, presenting due to chest pain, found to have an NSTEMI and SVT. He is currently stable and asymptomatic. Scheduled to have a cardiac catheterization this morning. s/d/w Dr. Peña Discharge Planning Discharge pending clearance from cardiology after cardiac cath today. (Leslie Ordoñez MD R3) Attending Attestation Pt. examined and case discussed with resident team I have read the above note and agree with the assessment/plan as discussed with me I was involved in all medical decision making for this patient Keron Peña MD (Keron Peña MD) Problem List: (1) NSTEMI (non-ST elevated myocardial infarction) Status: Acute Plan: Patient presented due to chest pain. History consistent with unstable angina. Initial EKG on 10/[address] wave depression, SVT with rate of 187. TSH within normal limits. Troponin: 0.18->0.13->0.10. No significant changes in EKGs. Currently asymptomatic. Cardiology consulted. Appreciate expertise. * Cardiac catheterization today * Continue Heparin gtt * Continue Metoprolol 50mg po BID and Imdur 30mg po daily (started during this hospitalization) ASA 325mg po daily Pravastatin 80 mg po hs Nitropaste and sublingual nitroglycerin PRN chest pain Morphine PRN chest pain Vasotec PRN (2) SVT (supraventricular tachycardia) Status: Acute Plan: Currently in normal sinus rhythm; rate controlled. - Cardiac telemetry - Adenosine as needed (3) Alcohol abuse Status: Acute Plan: Patient with history of alcohol abuse. Reports drinking about 34 beers daily, more than this at times. He denies ever going through withdrawal or having seizures. CIWA protocol (4) Hypothyroid Status: Acute Plan: TSH, T3 and T4 normal on 10/16 - Continue home synthroid (5) Anxiety Status: Acute Plan: Continue home fluoxetine, Seroquel Ativan prn (6) Hyperlipidemia Status: Acute Plan: Tc 204, TG 22, LDL 116 -Continue high dose statin (7) FEN/PPX Status: Acute Plan: Fluids: NS at 140cc/hr since patient is NPO. Electrolytes: Continue to monitor and replete as needed Nutrition: NPO for catheterization. Advanced as tolerated after procedure DVT PPX: Heparin drip (Leslie Ordoñez MD R3) Leslie Ordoñez MD R3 Oct 18, 2016 09:50 Keron Peña MD Oct 18, 2016 16:22
[2016-10-18] MEDS ORDERED: IOHEXOL 350 MG/ML 100 ML BTL (for Cath Lab) OTHER ONE (10:08)
[2016-10-18] MEDS ORDERED: IOHEXOL 350 MG/ML 50 ML BTL (for Cath Lab) OTHER ONE (10:08)
[2016-10-18] MEDS ORDERED: HEPARIN-NS/PF INJ 500 ML ONE (10:14)
[2016-10-18] MEDS ORDERED: MIDAZOLAM HCL 2 MG/2 ML VIAL ONE (10:15)
[2016-10-18] MEDS ORDERED: HEPARIN SODIUM - IV 10,000 UNITS/10 ML VIAL ONE (10:20)
[2016-10-18] MEDS ORDERED: VERAPAMIL HCL 5 MG/2 ML VIAL ONE (10:20)
[2016-10-18] MEDS ORDERED: MISC INFORMATION XX ONE (11:15)
--- NOTE | 2016-10-18 11:33 | EKG ---
Date Performed: 10/17/2016 Time Performed: 23:52:42 PTAGE: 56 years EKG: Sinus rhythm Normal ECG PREVIOUS TRACING : 10/17/2016 19.45 Compared to prior tracing no significant change DOCTOR: Roshan Zayas Interpretating Date/Time 10/18/2016 11:31:15
--- NOTE | 2016-10-18 11:42 | EKG ---
Date Performed: 10/17/2016 Time Performed: 19:45:16 PTAGE: 56 years EKG: Sinus rhythm Normal ECG PREVIOUS TRACING : 10/17/2016 10.49 Compared to prior tracing no significant change DOCTOR: Roshan Zayas Interpretating Date/Time 10/18/2016 11:42:05
--- NOTE | 2016-10-18 12:03 | MA ---
cc: ANDER MARTÍNEZ M.D. DATE 10/18/2016 PROCEDURE Left heart catheterization, selective coronary angiography, left ventriculography. PROCEDURE NOTES The patient was brought to the cardiac catheterization laboratory in a fasting state after having signed informed consent. The right radial region was prepped and draped as per policy and anesthetized with 1% lidocaine. Arterial access was obtained via the right radial artery and a 6-Mal[place] sheath placed. Coronary arteriography was performed using 6-[place] catheter to engage the left main and one additional shot was taken using a Jyoti left 3.5, and a Jyoti right 5.0 to engage the right coronary. Left ventriculography was done using a multipurpose catheter. There were no apparent immediate complications. HEMODYNAMIC DATA Left ventricle 90 with an end-diastolic pressure of 10. Aorta 82/53 with a mean of 66. There was no significant transvalvular aortic gradient on pullback of the pigtail catheter. CORONARY ARTERIOGRAPHY The left main is a short vessel with no definite disease. The left anterior descending is a medium-sized, somewhat tortuous vessel giving rise to a small diagonal. The diagonal has diffuse ostial to proximal disease resulting in up to 40% stenosis. Right after the takeoff of the diagonal, the proximal LAD has a somewhat eccentric 40% stenosis. The mid to distal LAD is normal. The left circumflex is a fairly large vessel giving rise to a medium-sized first obtuse marginal, small second obtuse marginal and medium-sized posterolateral branches. No definite disease is seen in the left circumflex system. The right coronary artery is a large dominant vessel with no disease. LEFT VENTRICULOGRAPHY Contrast injection of the left ventricle reveals no segmental wall motion abnormalities. Ejection fraction is estimated at 55%. CONCLUSIONS 1. Mild to moderate proximal LAD and proximal diagonal disease, otherwise angiographically normal coronary arteries. Of note, there is slightly sluggish flow in the right coronary and LAD. 2. Normal left ventricular function with estimated ejection fraction of 55%. MD RUBEN Ramirez/SSB /11:08 AM /11:59 AM DESIREE
--- NOTE | 2016-10-18 13:07 | HHI.DCPOC ---
Discharge Care Plan Diagnosis: (1) NSTEMI (non-ST elevated myocardial infarction) (2) SVT (supraventricular tachycardia) Goals to Promote Your Health * To prevent worsening of your condition and complications * To maintain your health at the optimal level Directions to Meet Your Goals Take your medications as prescribed Follow your dietary instruction Follow activity as directed Keep your appointments as scheduled Take your immunizations and boosters as scheduled If your symptoms worsen call your PCP, if no PCP go to Urgent Care Center or Emergency Room Smoking is Dangerous to Your Health. Avoid second hand smoke Call the 24-hour hour crisis hotline for domestic abuse at Leslie Ordoñez MD R3 Oct 18, 2016 13:07
[2016-10-18] MEDS ORDERED: ISOS60TA PO (13:21)
[2016-10-18] MEDS ORDERED: METO-309 PO (13:21)
[2016-10-18] MEDS ORDERED: ASPI-110 PO (13:25)
[2016-10-19] MEDS ORDERED: ISOSORBIDE MONONITRATE 60 MG TAB PO SCH (07:00)
== END 2016-10-18 15:00 | disposition home or self-care (01) | DRG 281 ==
LOC: NEPE 10:28 → NEDA 12:16 → HCIN 15:52
PROVIDERS: ADMIT Family Medicine; ATTEND Family Medicine
PROC: B2111ZZ Fluoroscopy of Multiple Coronary Arteries using Low Osmolar Contrast (ICD-10-PCS; 2016-10-18)
PROC: 4A023N7 Measurement of Cardiac Sampling and Pressure, Left Heart, Percutaneous Approach (ICD-10-PCS; 2016-10-18)
PROC: B2151ZZ Fluoroscopy of Left Heart using Low Osmolar Contrast (ICD-10-PCS; principal; 2016-10-18 11:00)
DX: I21.4 Non-ST elevation (NSTEMI) myocardial infarction (principal); I47.1 Supraventricular tachycardia; E89.0 Postprocedural hypothyroidism; Z92.3 Personal history of irradiation; Z87.891 Personal history of nicotine dependence; F12.90 Cannabis use, unspecified, uncomplicated; L55.9 Sunburn, unspecified; E78.5 Hyperlipidemia, unspecified; F10.10 Alcohol abuse, uncomplicated; Z87.19 Personal history of other diseases of the digestive system
CPT/HCPCS: 71010; 80053; 80061; 82550; 83735; 84439; 84443; 84481; 84484; 85025; 85610; 85730; 93005; 93458; 96365; 96374; 96376; C1769; C1893; J0153; J1644; J2060; J2250; J3010; J7030; Q9967